=== PATIENT | female | born 1970 | race Two or more races ===

== ENCOUNTER → 2018-08-31 | Outpatient (CLI) | payer OTHER | LOC: FIMAGING 13:00 | PROVIDERS: ATTEND Family Medicine | DX: D21.9 Benign neoplasm of connective and other soft tissue, unspecified (principal); N60.11 Diffuse cystic mastopathy of right breast; N60.12 Diffuse cystic mastopathy of left breast ==

== ENCOUNTER → 2018-10-06 | Outpatient (CLI) | payer OTHER ==
[~2018-10-06] MED LIST: LIDOCAINE 1% 300 MG/30 ML SDV ONE
== END ==
LOC: FIMAGING 09-15 07:11
PROVIDERS: ATTEND Family Medicine
PROC: 0H9U3ZZ Drainage of Left Breast, Percutaneous Approach (ICD-10-PCS; principal; 2018-10-06)
DX: N60.02 Solitary cyst of left breast (principal)

== ENCOUNTER → 2018-12-31 | Outpatient (CLI) | payer OTHER | LOC: FIMAGING 07:29 | PROVIDERS: ATTEND Family Medicine | DX: N60.09 Solitary cyst of unspecified breast (principal) ==